=== PATIENT | male | born 1945 | race Caucasian/White ===

== ENCOUNTER 2020-05-06 11:21 | Inpatient (IN) | payer MEDICARE, MEDICAID ==
[~2020-05-06] VITALS: Ht 172.7 cm; Wt 105.3 kg
[2020-05-06] MEDS ORDERED: LEVO25TA2 PO (11:32)
[2020-05-06] MEDS ORDERED: KEPP500 PO (11:32)
[2020-05-06] MEDS ORDERED: INSU100V3 SUBCUT (11:32)
[2020-05-06] MEDS ORDERED: FAMO-135 PO (11:32)
[2020-05-06] MEDS ORDERED: MORP10DI10 PO (11:32)
[2020-05-06] MEDS ORDERED: ZOLP5TAB2 PO (11:32)
[2020-05-06] MEDS ORDERED: GABA300C PO (11:32)
[2020-05-06] MEDS ORDERED: RIVA10TA PO (11:32)
[2020-05-06] MEDS ORDERED: GLIP5TAB3 PO (11:32)
[2020-05-06] MEDS ORDERED: TAMS-11 PO (11:32)
[2020-05-06] MEDS ORDERED: COR3 PO (11:32)
[2020-05-06] MEDS ORDERED: ATOR10TA PO (11:32)
[2020-05-06] MEDS ORDERED: INSU100I24 SQ (11:32)
[2020-05-06] MEDS ORDERED: METF500T PO (11:32)
[2020-05-06] MEDS ORDERED: ACETAMINOPHEN 325MG TABLET PO ONE (12:00)
[2020-05-06 17:33] LABS: CHLORIDE 108 mEq/L (98-107)
[2020-05-06 17:47] LABS: HEMATOCRIT. 35.3 % (42.0-52.0); HEMOGLOBIN. 11.6 g/dL (14.0-18.0); MEAN CORPUSCULAR HEMOGLOBIN 25.8 pg (28.0-32.0); MEAN CORPUSCULAR VOLUME 78.5 fL (80.0-94.0); MEAN PLATELET VOLUME 9.6 fl (7.4-10.4); PLATELET 236 x1000/uL (130-400); RED BLOOD CELL COUNT 4.49 mill/uL (4.7-6.1)
[2020-05-06 18:27] LABS: PLATELET ESTIMATE NORMAL
[2020-05-06] MEDS ORDERED: MORPHINE SULFATE 2 MG/ML CPJ (NOT FOR IM USE) IV PRN (21:00)
[2020-05-06 21:37] VITALS: BP 146/83
[2020-05-06] MEDS ORDERED: ATOR20TA PO (22:50)
[2020-05-06] MEDS ORDERED: ACETAMINOPHEN 650MG SUPP PR PRN (23:00)
[2020-05-06] MEDS ORDERED: LORAZEPAM 2MG/ML CPJ IV PRN (23:00)
[2020-05-06] MEDS ORDERED: ONDANSETRON HCL 4MG/2ML INJ IV PRN (23:00)
[2020-05-06] MEDS ORDERED: HYDROCODONE/ACETAMINOPHEN 5/325MG TABLET PO PRN (23:00)
[2020-05-06] MEDS ORDERED: MORPHINE SULFATE 15MG TABLET SR PO PRN (23:30)
[2020-05-06] MEDS ORDERED: DEXTROSE 50% WATER 50ML SYRINGE IV PRN (23:30)
[2020-05-07 00:27] VITALS: BP 175/107
[2020-05-07] MEDS: MORPHINE SULFATE 2 MG/ML CPJ (NOT FOR IM USE) IV PRN ×2 (01:01→08:14)
[2020-05-07 04:00] VITALS: BP 166/82
[2020-05-07] MEDS: GABAPENTIN 300MG CAPSULE PO SCH ×3 (05:02→21:06)
[2020-05-07] MEDS: LEVOTHYROXINE SODIUM 25MCG TABLET PO SCH (06:55)
[2020-05-07] MEDS: BLOOD SUGAR DIAGNOSTIC STRIP TEST SCH ×4 (06:56→20:37)
[2020-05-07] MEDS: INSULIN LISPRO 100 UNITS/ML SUBCUT SCH ×7 (06:57→21:00)
[2020-05-07 07:15] LABS: CLARITY URINE CLEAR (CLEAR); COLOR URINE YELLOW (YELLOW); KETONES URINE NEGATIVE (NEGATIVE); LEUKOCYTE ESTERASE URINE NEGATIVE (NEGATIVE); NITRITE URINE NEGATIVE (NEGATIVE); OCCULT BLOOD URINE NEGATIVE (NEGATIVE); PROTEIN URINE 2+ (NEGATIVE); SPECIFIC GRAVITY URINE 1.023 (1.005-1.030)
[2020-05-07] MEDS ORDERED: GLIPIZIDE 5MG TABLET PO SCH (07:20)
[2020-05-07 08:00] VITALS: BP 168/88
[2020-05-07 08:03] LABS: *AMPHETAMINES SCREEN URINE NEGATIVE (NEGATIVE); *BARBITURATES SCREEN URINE NEGATIVE (NEGATIVE); *BENZODIAZEPINES SCREEN URINE NEGATIVE (NEGATIVE); *COCAINE SCREEN URINE NEGATIVE (NEGATIVE); METHADONE URINE SCREEN NEGATIVE (NEGATIVE)
[2020-05-07 08:04] LABS: CANNABINOID URINE SCREEN NEGATIVE (NEGATIVE); OPIATES URINE SCREEN PRESUMTIVE POSITIVE (NEGATIVE); PHENCYCLIDINE URINE SCREEN NEGATIVE (NEGATIVE)
[2020-05-07] MEDS: LEVETIRACETAM 500MG TABLET PO SCH ×2 (08:12→20:50)
[2020-05-07] MEDS: FAMOTIDINE 20MG TABLET PO SCH ×2 (08:12→20:51)
[2020-05-07] MEDS: TAMSULOSIN HCL 0.4MG SR CAPSULE PO SCH (08:13)
[2020-05-07] MEDS: METFORMIN HCL 850MG TABLET PO SCH ×2 (08:13→16:34)
[2020-05-07] MEDS: ASPIRIN 81MG EC TABLET PO SCH (08:14)
[2020-05-07] MEDS: CARVEDILOL 3.125 MG TABLET PO SCH ×2 (08:14→20:51)
[2020-05-07] MEDS ORDERED: ENOXAPARIN 30MG/0.3ML SYR SUBCUT SCH (09:00)
[2020-05-07] MEDS: INSULIN GLARGINE UD 100 UNITS/ML SYR SUBCUT SCH (10:02)
[2020-05-07] MEDS ORDERED: CLONIDINE 0.1MG TABLET PO PRN (11:30)
[2020-05-07 12:08] VITALS: BP 139/83
[2020-05-07] MEDS: AMLODIPINE 10MG TABLET PO SCH (12:28)
[2020-05-07] MEDS: HYDROCODONE/ACETAMINOPHEN 10/325MG TABLET PO PRN ×2 (12:29→21:04)
[2020-05-07] MEDS ORDERED: TEMAZEPAM 15MG CAPSULE PO PRN (15:30)
[2020-05-07 16:00] VITALS: BP 120/70
[2020-05-07] MEDS: RIVAROXABAN 20 MG TABLET PO SCH (16:32)
[2020-05-07] MEDS: MORPHINE SULFATE 10MG/5ML ORAL SOLN UDC PO PRN (16:33)
[2020-05-07 20:24] VITALS: BP 129/81
[2020-05-07] MEDS: ATORVASTATIN CALCIUM 20MG TABLET PO SCH (20:51)
[2020-05-07] MEDS ORDERED: ZOLPIDEM TARTRATE 5MG TABLET PO SCH (21:00)
[2020-05-07 21:59] LABS: EOSINOPHILS % 2.6 % (0.0-5.0); HEMATOCRIT. 31.9 % (42.0-52.0); HEMOGLOBIN. 10.4 g/dL (14.0-18.0); LYMPHOCYTES % 21.8 % (20.0-50.0); MEAN CORPUSCULAR HEMOGLOBIN 25.8 pg (28.0-32.0); MEAN CORPUSCULAR VOLUME 79.2 fL (80.0-94.0); MONOCYTES % 9.6 % (2.0-8.0); PLATELET 262 x1000/uL (130-400); RED BLOOD CELL COUNT 4.03 mill/uL (4.7-6.1); RED CELL DISTRIBUTION WIDTH 14.2 % (11.6-14.6)
[2020-05-07 22:17] LABS: PHOSPHORUS 2.2 mg/dL (2.5-4.9)
[2020-05-08] VITALS: BP 136/79
[2020-05-08] MEDS ORDERED: MAGNESIUM 2 G PREMIX 50 ML IV NR (01:00)
[2020-05-08 04:00] VITALS: BP 134/76
[2020-05-08] MEDS: BLOOD SUGAR DIAGNOSTIC STRIP TEST SCH ×4 (06:26→21:04)
[2020-05-08] MEDS: INSULIN LISPRO 100 UNITS/ML SUBCUT SCH ×7 (06:40→20:56)
[2020-05-08] MEDS: HYDROCODONE/ACETAMINOPHEN 10/325MG TABLET PO PRN ×2 (06:41→17:03)
[2020-05-08] MEDS: GABAPENTIN 300MG CAPSULE PO SCH ×3 (06:42→21:01)
[2020-05-08] MEDS: LEVOTHYROXINE SODIUM 25MCG TABLET PO SCH (06:42)
[2020-05-08 08:00] VITALS: BP 138/71
[2020-05-08] MEDS: LEVETIRACETAM 500MG TABLET PO SCH ×2 (08:31→21:01)
[2020-05-08] MEDS: METFORMIN HCL 850MG TABLET PO SCH ×2 (08:31→19:04)
[2020-05-08] MEDS: CARVEDILOL 3.125 MG TABLET PO SCH ×2 (08:31→21:01)
[2020-05-08] MEDS: AMLODIPINE 10MG TABLET PO SCH (08:31)
[2020-05-08] MEDS: FAMOTIDINE 20MG TABLET PO SCH ×2 (08:31→21:01)
[2020-05-08] MEDS: TAMSULOSIN HCL 0.4MG SR CAPSULE PO SCH (08:32)
[2020-05-08] MEDS: ASPIRIN 81MG EC TABLET PO SCH (08:40)
[2020-05-08] MEDS: MORPHINE SULFATE 10MG/5ML ORAL SOLN UDC PO PRN (10:36)
[2020-05-08] MEDS: INSULIN GLARGINE UD 100 UNITS/ML SYR SUBCUT SCH (10:39)
[2020-05-08 16:00] VITALS: BP 140/89
[2020-05-08] MEDS: RIVAROXABAN 20 MG TABLET PO SCH (17:03)
[2020-05-08 20:30] VITALS: BP 110/54
[2020-05-08] MEDS: ATORVASTATIN CALCIUM 20MG TABLET PO SCH (21:00)
[2020-05-08] MEDS: MAGNESIUM OXIDE 400MG TABLET PO SCH (21:01)
[2020-05-09] VITALS (8 sets, daily range): BP systolic 114–142; BP diastolic 60–82
[2020-05-09] MEDS: HYDROCODONE/ACETAMINOPHEN 10/325MG TABLET PO PRN ×2 (02:46→19:49)
[2020-05-09] MEDS: GABAPENTIN 300MG CAPSULE PO SCH ×2 (06:18→14:21)
[2020-05-09] MEDS: LEVOTHYROXINE SODIUM 25MCG TABLET PO SCH (06:21)
[2020-05-09] MEDS: INSULIN LISPRO 100 UNITS/ML SUBCUT SCH ×6 (06:33→17:23)
[2020-05-09] MEDS: BLOOD SUGAR DIAGNOSTIC STRIP TEST SCH ×4 (06:33→21:45)
[2020-05-09] MEDS: MAGNESIUM OXIDE 400MG TABLET PO SCH (08:22)
[2020-05-09] MEDS: TAMSULOSIN HCL 0.4MG SR CAPSULE PO SCH (08:23)
[2020-05-09] MEDS: FAMOTIDINE 20MG TABLET PO SCH (08:23)
[2020-05-09] MEDS: METFORMIN HCL 850MG TABLET PO SCH ×2 (08:23→17:19)
[2020-05-09] MEDS: LEVETIRACETAM 500MG TABLET PO SCH (08:23)
[2020-05-09] MEDS: ASPIRIN 81MG EC TABLET PO SCH (08:23)
[2020-05-09] MEDS: CARVEDILOL 3.125 MG TABLET PO SCH ×2 (08:24→21:43)
[2020-05-09] MEDS: AMLODIPINE 10MG TABLET PO SCH (08:25)
[2020-05-09] MEDS: MORPHINE SULFATE 10MG/5ML ORAL SOLN UDC PO PRN (08:49)
[2020-05-09 09:14] LABS: BASOPHILS % 0.9 % (0.0-2.0); EOSINOPHILS % 3.5 % (0.0-5.0); HEMOGLOBIN. 10.8 g/dL (14.0-18.0); LYMPHOCYTES % 27.3 % (20.0-50.0); MEAN CORPUSCULAR HEMOGLOBIN 25.8 pg (28.0-32.0); MEAN CORPUSCULAR VOLUME 78.9 fL (80.0-94.0); MEAN PLATELET VOLUME 9.3 fl (7.4-10.4); MONOCYTES % 8.7 % (2.0-8.0); NEUTROPHILS % 59.6 % (40.0-76.0); PLATELET 256 x1000/uL (130-400); RED BLOOD CELL COUNT 4.19 mill/uL (4.7-6.1); RED CELL DISTRIBUTION WIDTH 14.1 % (11.6-14.6)
[2020-05-09 09:28] LABS: CHLORIDE 108 mEq/L (98-107)
[2020-05-09 09:35] LABS: PHOSPHORUS 2.9 mg/dL (2.5-4.9)
[2020-05-09] MEDS: INSULIN GLARGINE UD 100 UNITS/ML SYR SUBCUT SCH (10:09)
[2020-05-09] MEDS ORDERED: IOHEXOL-350 100 ML BOTTLE ONE (11:49)
[2020-05-09] MEDS: RIVAROXABAN 20 MG TABLET PO SCH (17:19)
== END 2020-05-09 21:25 | DRG 303 ==
LOC: ER 11:21 → 6WST 18:33 → ENRESERV 20:49
PROVIDERS: ADMIT Internal Medicine Nephrology; ATTEND Internal Medicine Nephrology
DX: I87.8 Other specified disorders of veins (principal); E11.51 Type 2 diabetes mellitus with diabetic peripheral angiopathy without gangrene; E03.9 Hypothyroidism, unspecified; E66.9 Obesity, unspecified; E78.5 Hyperlipidemia, unspecified; L85.3 Xerosis cutis; G89.4 Chronic pain syndrome; G40.909 Epilepsy, unspecified, not intractable, without status epilepticus; R26.89 Other abnormalities of gait and mobility; I11.0 Hypertensive heart disease with heart failure; I48.91 Unspecified atrial fibrillation; I50.40 Unspecified combined systolic (congestive) and diastolic (congestive) heart failure; I87.2 Venous insufficiency (chronic) (peripheral); W22.09XA Striking against other stationary object, initial encounter; Y93.89 Activity, other specified; Y92.128 Other place in nursing home as the place of occurrence of the external cause; Y99.8 Other external cause status; Z86.73 Personal history of transient ischemic attack (TIA), and cerebral infarction without residual deficits; Z68.35 Body mass index [BMI] 35.0-35.9, adult; Z71.3 Dietary counseling and surveillance; Z03.818 Encounter for observation for suspected exposure to other biological agents ruled out; S80.811A Abrasion, right lower leg, initial encounter
CPT/HCPCS: 36415; 71045; 73590; 75635; 80048; 80053; 80305; 81003; 82962; 83036; 83735; 84100; 85025; 87635; 93005; 93923; 97162; 99285; J1815; J2270; J3475; Q9967